=== PATIENT | male | born 1985 | race Hispanic/Latino ===

== ENCOUNTER 2017-01-02 13:07 | Emergency (ER) | payer OTHER, SELFPAY ==
[2017-01-02] MEDS ORDERED: Adacel (T-DAP) 0.5 ML VIAL ONE (13:29)
[2017-01-02] MEDS ORDERED: Bacitracin Zinc 1 Packet ONE (13:55)
== END 2017-01-02 14:17 | disposition home or self-care (01) ==
LOC: BURERS 13:07
DX: S61.211A Laceration without foreign body of left index finger without damage to nail, initial encounter (principal); W26.0XXA Contact with knife, initial encounter
CPT/HCPCS: 12001; 90471; 90715

== ENCOUNTER 2017-02-11 04:49 | Emergency (ER) | payer SELFPAY ==
[2017-02-11] MEDS ORDERED: Ibuprofen 200 MG TAB ONE (05:18)
[2017-02-11] MEDS ORDERED: Dexamethasone 4 mg/ml Vial ONE (05:21)
== END 2017-02-11 05:25 | disposition home or self-care (01) ==
LOC: BURERS 04:49
DX: J06.9 Acute upper respiratory infection, unspecified (principal); F17.210 Nicotine dependence, cigarettes, uncomplicated
CPT/HCPCS: 99283; J1100

== ENCOUNTER 2018-10-14 12:37 | Emergency (ER) | payer SELFPAY ==
--- NOTE | 2018-10-14 17:47 | RAD ---
RIGHT KNEE FOUR VIEWS: 10/14/18 No acute fracture or joint space abnormality was seen. A jazzmine is seen in the femur from a prior ORIF. There does appear to be some thickening of the distal quadriceps muscle/tendon. One might investigate this further depending upon the physical exam. The articular surfaces of the knee joint are smooth. IMPRESSION: No acute bony abnormalities. Possible thickening of the distal quadriceps muscle and/or tendon. POS: HOME
== END 2018-10-14 13:44 | disposition home or self-care (01) ==
LOC: BURERS 12:37
DX: M79.604 Pain in right leg (principal); F17.210 Nicotine dependence, cigarettes, uncomplicated

== ENCOUNTER 2021-06-08 21:11 | Emergency (ER) | payer OTHER, SELFPAY ==
[2021-06-08] MEDS ORDERED: Ibuprofen 800 MG TAB ONE (21:52)
== END 2021-06-08 22:05 | disposition home or self-care (01) ==
LOC: BURERS 21:11
DX: S00.33XA Contusion of nose, initial encounter (principal); S00.211A Abrasion of right eyelid and periocular area, initial encounter; W20.8XXA Other cause of strike by thrown, projected or falling object, initial encounter
CPT/HCPCS: 70160

== ENCOUNTER 2022-10-12 07:32 | Emergency (ER) | payer SELFPAY | END 2022-10-12 08:46 | disposition home or self-care (01) | LOC: BURERS 07:32 | DX: S60.211A Contusion of right wrist, initial encounter (principal); X58.XXXA Exposure to other specified factors, initial encounter ==